=== PATIENT | female | born 1945 | race Caucasian/White ===

== ENCOUNTER 2022-02-14 14:25 | Inpatient (IN) | payer MEDICARE ==
[~2022-02-14] VITALS: Ht 165.1 cm; Wt 71.7 kg
[~2022-02-14 14:25] MED LIST: QUETIAPINE FUMARATE 25 MG TABLET PO SCH
--- NOTE | 2022-02-14 14:25 | NUR ---
PT AL FROM [facility] C/O COUGH AND CONGESTION X2 DAYS. +COVID FEBRUARY 12, 2022. PT IS AAOX2, NOT IN RESPIRATORY DISTRESS, HOOKED TO V/S MONITOR, KEPT RESTED AND COMFORTABLE, WILL CONTINUE TO MONITOR.
[2022-02-14] MEDS ORDERED: APIX5TAB PO (15:29)
[2022-02-14] MEDS ORDERED: QUET100T PO (15:29)
[2022-02-14] MEDS ORDERED: QUET50TA PO (15:29)
[2022-02-14] MEDS ORDERED: ASCO500C17 PO (15:29)
[2022-02-14] MEDS ORDERED: LORA-259 PO (15:29)
[2022-02-14] MEDS ORDERED: VITA1TAB20 PO (15:29)
[2022-02-14] MEDS ORDERED: DIVA-78 PO (15:29)
[2022-02-14] MEDS ORDERED: ASPI-1169 PO (15:29)
[2022-02-14] MEDS ORDERED: MULT-439 PO (15:29)
--- NOTE | 2022-02-14 15:45 | NUR ---
COVID SWABS DONE AND SENT TO LAB
--- NOTE | 2022-02-14 15:50 | NUR ---
SALINE LOCK ESTABLISHED, BLOOD DRAWN AND SENT TO LAB
[2022-02-14 15:57] LABS: BASOPHILS % (AUTO) 0.4 % (0.0-2.0); EOSINOPHILS % (AUTO) 2.4 % (0.0-6.0); HEMATOCRIT 33 % (33-45); HEMOGLOBIN 10.7 g/dL (11.5-14.8); LYMPHOCYTES # (AUTO) 0.9 K/uL (0.8-4.8); LYMPHOCYTES % (AUTO) 15.5 % (20.0-44.0); MEAN CORPUSCULAR HGB CONC 33 g/dl (31.0-36.0); MEAN CORPUSCULAR VOLUME 88 fL (82-100); MONOCYTES # (AUTO) 0.5 K/uL (0.1-1.30); MONOCYTES % (AUTO) 8.2 % (2.0-12.0); NEUTROPHILS # (AUTO) 4.3 K/uL (1.8-8.9); NEUTROPHILS % (AUTO) 73.5 % (43.0-81.0); PLATELET COUNT (AUTO) 321 K/uL (150-450); RED BLOOD CELL COUNT(AUTO) 3.68 MIL/uL (4.0-5.2); WHITE BLOOD COUNT (AUTO) 5.9 K/uL (4.3-11.0)
[2022-02-14 16:26] LABS: ALBUMIN 2.8 g/dL (3.4-5.0); BILIRUBIN,TOTAL 0.6 mg/dL (0.2-1.0); CALCIUM, SERUM 9.8 mg/dL (8.5-10.1); CREATININE 0.7 mg/dL (0.6-1.3); POTASSIUM 4.2 mmol/L (3.5-5.1)
[2022-02-14] MEDS ORDERED: ONDANSETRON HCL/PF 4 MG/2 ML VIAL IVP PRN (17:00)
[2022-02-14] MEDS ORDERED: ALBUTEROL SULFATE 8 GM HFA.AER.AD IH PRN (17:00)
[2022-02-14] MEDS ORDERED: ACETAMINOPHEN 325 MG TABLET PO PRN (17:00)
--- NOTE | 2022-02-14 17:02 | NUR ---
ROOM GIVEN 106.
--- NOTE | 2022-02-14 17:54 | NUR ---
REPORT GIVEN TO ULISES CAIN FOR KELSEY
--- NOTE | 2022-02-14 18:33 | NUR ---
TRANSFERRED TO BED 106 IN STABLE CONDITION
--- NOTE | 2022-02-14 19:10 | NUR ---
RN NOTES RECEIVED REPORT FROM MORNING RN NORIS. PATIENT IN BED CONFUSED COMBATIVE TOWARDS STAFF. WITH IV ACCESS AT R HAND # 20 PATENT FLUSHES WELL. WITH BILATERAL SOFT RESTRAINTS IN PLACE. PATIENT ON ISOLATION DUE TO COVID +. VITAL SIGNS TAKEN AND RECORDED AFEBRILE. ALL SAFETY MEASURES IN PLACE AT ALL TIMES. HOB ELEVATED. CALL LIGHT WITHIN REACH. BED ON LOWEST POSITION AND LOCKED. WILL CLOSELY MONITOR THE PATIENT
[2022-02-14] MEDS: QUETIAPINE FUMARATE 100 MG TABLET PO SCH (19:16)
[2022-02-14] MEDS: APIXABAN 5 MG TABLET PO SCH (19:16)
[2022-02-14 20:00] VITALS: BP 101/85
[2022-02-14] MEDS: DIVALPROEX SODIUM 250 MG TABLET.DR PO SCH (21:06)
[2022-02-14] MEDS: LORAZEPAM INJ 2 MG/ML VIAL IV PRN (22:29)
--- NOTE | 2022-02-15 | NUR ---
RN NOTES PATIENT STILL RESTLESS ABLE TO REMOVE RESTRAINTS. FREQUENT VISUAL MONITORING RENDERED.
[2022-02-15 04:00] VITALS: BP 127/67
[2022-02-15] MEDS: DIVALPROEX SODIUM 250 MG TABLET.DR PO SCH ×3 (05:00→20:22)
[2022-02-15] MEDS ORDERED: CEFTRIAXONE 1 G VIAL ONE ×2 (05:21→05:22)
--- NOTE | 2022-02-15 06:44 | NUR ---
RN NOTES PATIENT REMAINS STABLE NO SIGNIFICANT CHANGES STILL WITH BILATERAL SOFT RESTRAINTS IN PLACE. ALL SAFETY MEASURES IN PLACE AT ALL TIMES. HOB ELEVATED. CALL LIGHT WITHIN REACH. SIDE RAILS UP FOR SAFETY. FREQUENT VISUAL MONITORING RENDERED. PATIENT STILL WITH EPISODE OF RESTLESSNESS TRYING TO GET OUT OF BED EVEN WITH RESTRAINTS
[2022-02-15 07:26] LABS: BASOPHILS % (AUTO) 0.4 % (0.0-2.0); HEMATOCRIT 32 % (33-45); HEMOGLOBIN 10.2 g/dL (11.5-14.8); LYMPHOCYTES # (AUTO) 0.8 K/uL (0.8-4.8); LYMPHOCYTES % (AUTO) 14.1 % (20.0-44.0); MEAN CORPUSCULAR HGB CONC 32 g/dl (31.0-36.0); MEAN CORPUSCULAR VOLUME 89 fL (82-100); MONOCYTES # (AUTO) 0.6 K/uL (0.1-1.30); MONOCYTES % (AUTO) 10.7 % (2.0-12.0); NEUTROPHILS # (AUTO) 3.9 K/uL (1.8-8.9); NEUTROPHILS % (AUTO) 71.8 % (43.0-81.0); PLATELET COUNT (AUTO) 263 K/uL (150-450); RED BLOOD CELL COUNT(AUTO) 3.56 MIL/uL (4.0-5.2); WHITE BLOOD COUNT (AUTO) 5.4 K/uL (4.3-11.0)
--- NOTE | 2022-02-15 07:30 | NUR ---
MS RN OPENING NOTES RECEIVED PATIENT ON BED RESTING AND A/O X1 AND CONFUSED. ON ROOM AIR TOLERATING WELL. NO SOB NOTED. NOT IN DISTRESS. ON AIRBORNE AND CONTACT PRECAUTION. WITH NO COMPLAINTS OF PAIN OR DISCOMFORT AT THIS TIME. WITH IV ACCESS AT RIGHT AC G22 SALINE LOCKED, PATENT AND INTACT. SAFETY MEASURES IN PLACED. CALL LIGHT WITHIN REACH. BED ON LOWEST LOCKED POSITION. SIDE RAILS UP X2. WILL CONTINUE TO MONITOR.
[2022-02-15 08:07] LABS: ALANINE AMINOTRANSFERASE 18 U/L (12-78); ALBUMIN 2.5 g/dL (3.4-5.0); ALKALINE PHOSPHATASE 303 U/L (46-116); ASPARTATE AMINOTRANSFERASE 23 U/L (15-37); BILIRUBIN,TOTAL 0.5 mg/dL (0.2-1.0); CALCIUM, SERUM 9.8 mg/dL (8.5-10.1); CARBON DIOXIDE 27 mmol/L (21-32); CHLORIDE 108 mmol/L (98-107); CREATININE 0.6 mg/dL (0.6-1.3); GLUCOSE 89 mg/dL (74-106); POTASSIUM 3.7 mmol/L (3.5-5.1); SODIUM SERUM 141 mmol/L (136-145); TOTAL PROTEIN, SERUM 6.3 g/dL (6.4-8.2); UREA NITROGEN, BLOOD 18 mg/dL (7-18)
[2022-02-15] MEDS: APIXABAN 5 MG TABLET PO SCH ×2 (08:56→16:20)
[2022-02-15] MEDS: CHOLECALCIFEROL (VITAMIN D 3) 400 UNIT TABLET PO SCH (08:56)
[2022-02-15] MEDS: ASPIRIN 81 MG TAB.CHEW PO SCH (08:56)
[2022-02-15] MEDS: ASCORBIC ACID 500 MG TABLET PO SCH (08:56)
[2022-02-15] MEDS: MULTIVITAMINS,THERAGRAN 1 UDTAB TABLET PO SCH (08:56)
[2022-02-15] MEDS: PYRIDOXINE HCL 50 MG TABLET PO SCH (08:56)
[2022-02-15] MEDS: ZINC SULFATE 220 MG CAPSULE PO SCH (08:56)
[2022-02-15] MEDS: QUETIAPINE FUMARATE 100 MG TABLET PO SCH ×2 (08:56→16:19)
[2022-02-15 12:00] VITALS: BP 132/65
[2022-02-15] MEDS: QUETIAPINE FUMARATE 25 MG TABLET PO SCH (12:09)
--- NOTE | 2022-02-15 18:25 | NUR ---
MS RN CLOSING NOTES PATIENT ON BED RESTING AND A/O X1 AND CONFUSED. ON ROOM AIR TOLERATING WELL. NO SOB NOTED. NOT IN DISTRESS. ON AIRBORNE AND CONTACT PRECAUTION. WITH NO COMPLAINTS OF PAIN OR DISCOMFORT AT THIS TIME. WITH IV ACCESS AT RIGHT AC G22 SALINE LOCKED, PATENT AND INTACT. DUE MEDS GIVEN. SAFETY MEASURES IN PLACED. CALL LIGHT WITHIN REACH. BED ON LOWEST LOCKED POSITION. SIDE RAILS UP X2. WILL ENDORSE TO NEXT SHIFT FOR KELSEY.
--- NOTE | 2022-02-15 19:33 | NUR ---
RN OPENING NOTES RECEIVED PT IN BED, AWAKE, SITTING UPRIGHT. ON RA AND TOLERATING WELL. NO SOB NOTED. NO S/SX OF RESPIRATORY DISTRESS NOTED. AOx1, CONFUSED. IV ACCESS IN RAC #22G. IV IS INTACT, PATENT, AND FLUSHING WELL. SAFETY PRECAUTIONS IN PLACE: BED IN LOWEST, LOCKED POSITION, SIDERAILS UPx2, AND BRAKES ON. TABLE AND CALL LIGHT WITHIN REACH. WILL CONTINUE TO MONITOR.
[2022-02-15 20:00] VITALS: BP 107/70
[2022-02-15] MEDS: LORAZEPAM INJ 2 MG/ML VIAL IV PRN (23:15)
--- NOTE | 2022-02-15 23:15 | NUR ---
ADMINISTERED ATIVAN FOR AGITATION PER MD ORDER. VS WNL. WILL CONTINUE TO MONITOR.
[2022-02-16 04:00] VITALS: BP 121/68
[2022-02-16] MEDS: DIVALPROEX SODIUM 250 MG TABLET.DR PO SCH ×3 (05:17→20:43)
--- NOTE | 2022-02-16 06:49 | NUR ---
RN CLOSING NOTES PT IN BED, ASLEEP, AWAKENS TO VERBAL STIMULI. ON RA AND TOLERATING WELL. NO SOB NOTED. NO S/SX OF RESPIRATORY DISTRESS NOTED. AOx1, CONFUSED. IV ACCESS IN RAC #22G. IV IS INTACT, PATENT, AND FLUSHING WELL. ALL ORDERS CARRIED OUT. ALL NEEDS MET. PT KEPT CLEAN AND DRY. SITTER AT BEDSIDE. SAFETY PRECAUTIONS IN PLACE: BED IN LOWEST, LOCKED POSITION, SIDERAILS UPx2, AND BRAKES ON. TABLE AND CALL LIGHT WITHIN REACH. WILL ENDORSE TO ONCOMING SHIFT FOR KELSEY.
[2022-02-16] MEDS: QUETIAPINE FUMARATE 100 MG TABLET PO SCH ×2 (09:15→16:32)
[2022-02-16] MEDS: ASPIRIN 81 MG TAB.CHEW PO SCH (09:15)
[2022-02-16] MEDS: MULTIVITAMINS,THERAGRAN 1 UDTAB TABLET PO SCH (09:21)
[2022-02-16] MEDS: PYRIDOXINE HCL 50 MG TABLET PO SCH (09:21)
[2022-02-16] MEDS: CHOLECALCIFEROL (VITAMIN D 3) 400 UNIT TABLET PO SCH (09:21)
[2022-02-16] MEDS: ASCORBIC ACID 500 MG TABLET PO SCH (09:21)
[2022-02-16] MEDS: APIXABAN 5 MG TABLET PO SCH ×2 (09:21→16:33)
[2022-02-16] MEDS: ZINC SULFATE 220 MG CAPSULE PO SCH (09:21)
[2022-02-16 12:00] VITALS: BP 110/64
[2022-02-16] MEDS: QUETIAPINE FUMARATE 25 MG TABLET PO SCH (13:09)
[2022-02-16] MEDS ORDERED: LORAZEPAM 0.5 MG TABLET PO PRN (14:30)
--- NOTE | 2022-02-16 18:42 | NUR ---
RN NOTE PT RESTING IN BED, RESPONSIVE TO STIMULI. NOT IN DISTRESS. WITH 1:1 SITTER. ROLANDO SOFT RESTRAINTS IN PLACE, WITH NO SS OF CIRCULATION COMPLICATIONS. IV ACCESS ON RAC G22 IN PLACE AND PATENT FLUSHING WELL. DUE MEDS GIVEN. MORNING AND PM CARE DONE. NEEDS ATTENDED. ALL SAFETY MEASURES FOLLOWED.
[2022-02-16 20:00] VITALS: BP 131/66
--- NOTE | 2022-02-16 20:30 | NUR ---
RN Opening Note Pt received in bed awake, confused; unable to answer when asked for her name, ; appears to be lethargic, but responds to name, touch and sternal rub. Pt noted to be on RA with no s/s of resp distress, non-labored breathing, and no SOB. VSS. Pt on bilateral soft wrist restraints and bilateral soft mittens; no s/s of impaired circulation or impaired skin. RAC 20G intact and patent; no s/s of infiltration. Bed in lowest position, call light within reach, side rails up x3. Will continue to monitor throughout the night.
--- NOTE | 2022-02-16 21:23 | NUR ---
RN Note Unable to administer scheduled Divalproex med at 2100; pt appears lethargic, unable to follow commands, unable to swallow medication. Will continue to monitor throughout the night.
--- NOTE | 2022-02-17 00:15 | NUR ---
RN Note Pt attempting to get out of bed, putting legs out of side rails, biting at mittens, and is restless. Pt given Ativan 0.5 mg PO PRN crushed and mixed with applesauce. Will monitor for effectiveness.
[2022-02-17 04:00] VITALS: BP 118/53
[2022-02-17] MEDS: DIVALPROEX SODIUM 250 MG TABLET.DR PO SCH ×2 (05:56→12:37)
--- NOTE | 2022-02-17 06:01 | NUR ---
RN Closing Note Pt sitting in bed, more awake than start of shift, confused. On RA, with O2sat 95%; no s/s of resp distress, no SOB noted, non-labored breathing. VSS. Pt showed no improvement after administering ativan 0.5 mg at 0046. Pt continues to be restless, biting at mittens, getting legs out of bed. RAC 22G intact and patent; no s/s of infiltration, flushes well without resistance. Cleansed pt and changed linens and gown. Bed in lowest position, call light within reach, side rails up x3. Will endorse to dayshift nurse to continue care.
--- NOTE | 2022-02-17 07:30 | NUR ---
RN AM NOTES PT IN BED, AWAKE/LETHARGIC, RESPONDS TO NAME AND TOUCH, CALM, CONFUSED, UNABLE TO FOLLOW COMMANDS, ON ROOM AIR, O2 SAT 95%. NO DISTRESS, RESPIRATION UNLABORED, NO SIGNS OF PAIN, IV ACCESS ON RT AC 22 G, FLUSHES WELL, SITE CLEAR. WITH BILAT SOFT WRIST RESTRAINT AND BILAT SOFT MITTENS. RELEASED AND CHECKED FOR CIRCULATION THEN Q 2 HOURS. REALITY ORIENTATION DONE. CALL LIGHT WITHIN REACH, SAFETY MEASURES IN PLACE, SR UP X 3, BED LOW LOCKED, WILL CONT TO MONITOR
[2022-02-17 08:00] VITALS: BP 98/73
[2022-02-17] MEDS ORDERED: Zinc Sulfate PO (08:22)
--- NOTE | 2022-02-17 09:30 | NUR ---
RN NOTES DUE MEDS GIVEN
[2022-02-17] MEDS: QUETIAPINE FUMARATE 100 MG TABLET PO SCH (09:57)
[2022-02-17] MEDS: MULTIVITAMINS,THERAGRAN 1 UDTAB TABLET PO SCH (09:57)
[2022-02-17] MEDS: ZINC SULFATE 220 MG CAPSULE PO SCH (09:57)
[2022-02-17] MEDS: ASCORBIC ACID 500 MG TABLET PO SCH (09:57)
[2022-02-17] MEDS: CHOLECALCIFEROL (VITAMIN D 3) 400 UNIT TABLET PO SCH (09:57)
[2022-02-17] MEDS: ASPIRIN 81 MG TAB.CHEW PO SCH (09:57)
[2022-02-17] MEDS: PYRIDOXINE HCL 50 MG TABLET PO SCH (09:57)
[2022-02-17] MEDS: APIXABAN 5 MG TABLET PO SCH (09:59)
[2022-02-17 12:00] VITALS: BP 104/61
[2022-02-17] MEDS: QUETIAPINE FUMARATE 25 MG TABLET PO SCH (12:37)
--- NOTE | 2022-02-17 13:40 | NUR ---
RN NOTES DUE MEDS GIVEN
--- NOTE | 2022-02-17 14:30 | NUR ---
RN NOTES PATIENT DISCHARGED BACK TO [facility] IN STABLE CONDITION PER MD. PROVIDED DC INSTRUCTIONS, HEALTH TEACHINGS AND MED RECON LIST. PT TO FOLLOW UP WITH PCP IN 1 WEEK PER FACILITY PROTOCOL. IV ACCESS TO RT AC REMOVED, APPLIED PRESSURE AND DRESSING. NO BLEEDING.CATH TIP COMPLETE. ALL BELONGINGS CHECKED AND RETURNED. ALL PAPERWORKS SIGNED. REPORT GIVEN TO SANDRA AT FACILITY EARLIER. BP 104/61 O2 SAT 94% PATIENT TO BE TRANSPORTED VIA AMBULANCE WITH 2 AMBULANCE CREW.
== END 2022-02-17 15:00 | DRG 178 ==
LOC: ER 14:27 → TRANSITION 16:47 → MEDSG1 17:44
PROVIDERS: ADMIT Nurse Practitioner Acute Care; ATTEND Nurse Practitioner Acute Care
DX: U07.1 COVID-19 (principal); J98.11 Atelectasis; F01.51 Vascular dementia, unspecified severity, with behavioral disturbance; I10 Essential (primary) hypertension; R74.8 Abnormal levels of other serum enzymes; F25.9 Schizoaffective disorder, unspecified; F29 Unspecified psychosis not due to a substance or known physiological condition
CPT/HCPCS: 36415; 71045-TC; 80053-TC; 80164-TC; 85025-TC; 87081-TC; C9803; G0378; J0696; J2060; U0003

== ENCOUNTER 2022-05-19 22:39 | Inpatient (IN) | payer MEDICARE ==
[~2022-05-19] VITALS: Ht 182.9 cm; Wt 102.1 kg
[~2022-05-19 22:39] MED LIST changes: +APIX5TAB PO; +ASCO500C17 PO; +ASPI-1169 PO; +DIVA-78 PO; +LORA-259 PO; +MULT-439 PO; +QUET100T PO; +QUET50TA PO; -QUETIAPINE FUMARATE 25 MG TABLET PO SCH; +VITA1TAB20 PO
--- NOTE | 2022-05-19 23:00 | NUR ---
PATIENT BIBPA FROM [facility] C/O MED CLEARANCE. PATIENT IS A/O X 1, RR EVEN AND UNLABORED, NO SOB NOTED. PATIENT TAKEN TO ER BED 7, CONNECTED TO MONITORS.
--- NOTE | 2022-05-19 23:01 | NUR ---
AT BED SIDE
--- NOTE | 2022-05-19 23:01 | NUR ---
PT PLACED ON HOLD 05/19/22 @2127 BY LINDA GEIGER FOR GDR/DTO
[2022-05-19] MEDS ORDERED: OLANZAPINE 10 MG VIAL IM ONE ×2 (23:07→23:30)
[2022-05-19] MEDS ORDERED: APIXABAN 5 MG TABLET ONE (23:07)
--- NOTE | 2022-05-19 23:10 | NUR ---
COVID ANTIGEN SWAB COLLECTED AND SENT TO LAB
[2022-05-19] MEDS: APIXABAN 5 MG TABLET PO SCH (23:23)
--- NOTE | 2022-05-19 23:24 | NUR ---
URINE COLLECTED AND SENT TO LAB
--- NOTE | 2022-05-19 23:25 | NUR ---
EMT AT PT'S BEDSIDE FOR MRSA SWAB & PT BELONGINGS LIST
[2022-05-19 23:33] LABS: BASOPHILS % (AUTO) 0.7 % (0.0-2.0); EOSINOPHILS % (AUTO) 3.8 % (0.0-6.0); HEMATOCRIT 35 % (33-45); HEMOGLOBIN 11.3 g/dL (11.5-14.8); LYMPHOCYTES % (AUTO) 28.3 % (20.0-44.0); MEAN CORPUSCULAR HGB CONC 32 g/dl (31.0-36.0); MEAN CORPUSCULAR VOLUME 85 fL (82-100); MONOCYTES # (AUTO) 0.8 K/uL (0.1-1.30); MONOCYTES % (AUTO) 11.6 % (2.0-12.0); NEUTROPHILS # (AUTO) 3.9 K/uL (1.8-8.9); NEUTROPHILS % (AUTO) 55.6 % (43.0-81.0); PLATELET COUNT (AUTO) 269 K/uL (150-450); RED BLOOD CELL COUNT(AUTO) 4.12 MIL/uL (4.0-5.2); WHITE BLOOD COUNT (AUTO) 7.1 K/uL (4.3-11.0)
[2022-05-19 23:58] LABS: ALANINE AMINOTRANSFERASE 15 U/L (12-78); ALBUMIN 2.8 g/dL (3.4-5.0); ALCOHOL, BLOOD < 3 mg/dL (0-0); ALKALINE PHOSPHATASE 128 U/L (46-116); ASPARTATE AMINOTRANSFERASE 15 U/L (15-37); BILIRUBIN,DIRECT 0.1 mg/dL (0.0-0.2); BILIRUBIN,TOTAL 0.3 mg/dL (0.2-1.0); CARBON DIOXIDE 29 mmol/L (21-32); CHLORIDE 105 mmol/L (98-107); CREATININE 0.7 mg/dL (0.6-1.3); GLUCOSE 96 mg/dL (74-106); POTASSIUM 4.3 mmol/L (3.5-5.1); SODIUM SERUM 139 mmol/L (136-145); TOTAL PROTEIN, SERUM 7.3 g/dL (6.4-8.2); UREA NITROGEN, BLOOD 8 mg/dL (7-18)
[2022-05-20 00:02] LABS: BILIRUBIN,URINE NEGATIVE (NEGATIVE); COLOR,URINE YELLOW (YELLOW); LEUKOCYTE ESTERASE ,URINE LARGE (NEGATIVE); NITRITE, URINE POSITIVE (NEGATIVE); PH,URINE 6.5 (5.0-8.0); PROTEIN,URINE NEGATIVE (NEGATIVE); UGLUCOSE NEGATIVE (NEGATIVE); UROBILINOGEN,URINE 0.2 EU/dL (0.2)
[2022-05-20 00:06] LABS: ACETAMINOPHEN < 2 ug/ml (10-30)
--- NOTE | 2022-05-20 01:25 | NUR ---
REPORT GIVEN TO [facility] RN FOR KELSEY
--- NOTE | 2022-05-20 01:29 | NUR ---
LEFT VOICE MAIL TO KARLEY BARRY ([facility] CONTACT #1) REGARDING PT'S ADMISSION TO [facility]
--- NOTE | 2022-05-20 02:47 | NUR ---
PT TRANSFERRED TO [facility] VIA PROTOCOL. ALL BELONGINGS WITH PT. VSS.
[2022-05-20] MEDS ORDERED: MAG HYDROX/AL HYDROX/SIMETH 30 ML UDC PO PRN (03:30)
[2022-05-20] MEDS ORDERED: BLOOD SUGAR DIAGNOSTIC 1 EACH STRIP IN ONE (03:30)
[2022-05-20] MEDS ORDERED: MAGNESIUM HYDROXIDE 30 ML UDC PO PRN (03:30)
[2022-05-20] MEDS ORDERED: ACETAMINOPHEN 325 MG TABLET PO PRN ×2 (03:30→13:00)
[2022-05-20] MEDS ORDERED: CHOL400C8 PO (05:01)
[2022-05-20 05:02] LABS: BACTERIA,URINE Many /HPF (None Seen); CALCIUM OXALATE CRYSTALS,UR Few /HPF (None Seen); SQUAMOUS EPITHELIAL CELL,UR Few /HPF (None Seen); WBC,URINE TOO NUMEROUS TO COUN /HPF (0-3)
--- NOTE | 2022-05-20 05:13 | NUR ---
GPS RN ADMITTING NOTES: PATIENT ARRIVED THIS UNIT WITH AN ER ESCORT ON A GURNEY AT 0245. PATIENT IS ORIGINALLY FROM [facility]. PATIENT IS ON A 5150 HOLD FOR DTO/GD. HOLD WAS PLACED ON 05/20/22 @ 2129. PER HOLD PATIENT WAS ACTING BIZARRE, CONFUSED, UNABLE TO RESPOND APPROPRIATELY TO QUESTIONS, STRIPPING HERSELF NAKED, FLIPPING HER CHAIR, ATTACKING STAFF AND REFUSING TO BE CLEANED. UPON FACE TO FACE EVALUATION, PATIENT IS A/O X1, FLAT AFFECT, CONFUSED, LABILE, DISORGANIZED, AGITATED AND COMBATIVE WHEN CARE IS BEING PROVIDED. PATIENT IS UNABLE TO SIGN ALL ADMISSION PAPERWORK, BS95. PARTIAL SKIN ASSESSMENT DONE BECAUSE PATIENT IS COMBATIVE, PICTURES TAKEN AND PLACED IN PATIENT CHART. PATIENT REFUSED V/S, MRSA. WOUND CARE, PT EVAL AND CONCRETE BUCKET HOOKER CONSULT INITIATED. PATIENT ADVISED OF HER HOLD AND PATIENT RIGHTS BOOKLET AND PRESCRIPTION MEDICATION GUIDE GIVEN. PATIENT BELONGINGS WERE INVENTORIED FOR [employer]. PT IS UNDER THE PSYCHIATRIC CARE OF DR. KLINE AND MEDICAL CARE OF DR. SUTTON. PATIENT BED IS IN LOW LOCKED POSITION, SIDE RAILS UP X2 FOR SAFETY. PATIENT OFFERED FLUID AND SNACKS TOLERATED. WILL CONTINUE TO MONITOR Q15 MINS FOR MOOD, SAFETY AND BEHAVIOR.
--- NOTE | 2022-05-20 07:06 | NUR ---
[facility]PS RN NOTES: PATIENT DAUGHTER JANUARY ASHA [phone] NOTIFIED OF PATIENT ADMISSION TO [facility] AT 0655.
[2022-05-20 08:00] VITALS: BP 102/62
[2022-05-20] MEDS ORDERED: ACET-868 PO (08:03)
[2022-05-20] MEDS ORDERED: MAGN400O6 PO (08:03)
[2022-05-20] MEDS ORDERED: DOCU-141 PO (08:03)
--- NOTE | 2022-05-20 09:00 | NUR ---
RN NOTE- PSYCHOSIS, DISORGANIZED MUMBLING PO INTAKE GOOD W ASSIST, MED COMPLIANT
[2022-05-20] MEDS: APIXABAN 5 MG TABLET PO SCH ×2 (09:20→16:58)
[2022-05-20] MEDS: Z GUARD REMEDY 4 OZ OINT TP SCH (09:22)
--- NOTE | 2022-05-20 11:08 | NUR ---
Treatment Plan: Pt refused to sign treatment plan due to pt being very confused and disorganized.
--- NOTE | 2022-05-20 11:08 | NUR ---
CAR Clinical Note: Pt placed on a 5150 hold for danger to others and GD. Per hold, pt was at [facility] and was aggressive at the facility towards staff and was not taking any of her medications. Patient currently resides at [facility] [address] [place] [address]; ([phone]). CAR spoke with Kit alonso who stated that pt is welcomed back upon discharge.
--- NOTE | 2022-05-20 11:08 | NUR ---
CAR Initial Discharge Note: Patient currently resides at [facility] [address] [place] [address]; ([phone]). CAR spoke with Kit alonso who stated that pt is welcomed back upon discharge. CAR will work with the MD, family, and treatment team to help coordinate appropriate discharge.
--- NOTE | 2022-05-20 12:59 | NUR ---
CAR Family Contact: SW contacted pt's son Germain ([phone]) and notified of admission. SW left a detailed voicemail in regards to placement and stated when pt is stabilized she will return back to [facility].
[2022-05-20] MEDS: DIVALPROEX SODIUM 125 MG CAP.SPRINK PO SCH ×2 (13:12→16:55)
[2022-05-20] MEDS: ASPIRIN 81 MG TAB.CHEW PO SCH (13:12)
[2022-05-20] MEDS: MULTIVIT W/MINERALS 1 TAB TABLET PO SCH (13:12)
[2022-05-20] MEDS: QUETIAPINE FUMARATE 25 MG TABLET PO SCH ×3 (13:12→21:38)
[2022-05-20] MEDS: VITAMIN B COMP W-C 1 TAB TABLET PO SCH (13:12)
[2022-05-20] MEDS: CHOLECALCIFEROL (VITAMIN D 3) 400 UNIT TABLET PO SCH (13:12)
[2022-05-20 16:00] VITALS: BP 127/60
[2022-05-20] MEDS ORDERED: APIXABAN 5 MG TABLET PO SCH (17:00)
[2022-05-20 20:30] VITALS: BP 134/72
--- NOTE | 2022-05-20 20:34 | NUR ---
GPS RN OPENING NOTES: RECEIVED PATIENT IN DAY ROOM SITTING IN AKASH CHAIR, AWAKE, A/O X1. APPEARS DEPRESSED, FLAT AFFECT, ANXIOUS, RESTLESS, DISORGANIZED, DISORIENTED, CONFUSED. UNABLE TO GIVE APPROPRIATE ANSWERS TO QUESTIONS. NO S/S OF DISTRESS. RESPIRATION EVEN AND UNLABORED WITH EQUAL RISE AND FALL OF THE CHEST, ON ROOM AIR. OFFERED FLUID AND SNACKS TOLERATED. WILL CONTINUE TO MONITOR Q15 FOR MOOD, SAFETY AND BEHAVIOR.
[2022-05-20] MEDS: ZOLPIDEM TARTRATE 5 MG TABLET PO PRN (22:18)
--- NOTE | 2022-05-20 22:20 | NUR ---
GPS RN NOTES: AMBIEN 5MG GIVEN PO AT 2218 D/T INSOMNIA. WILL CONTINUE TO MONITOR.
[2022-05-21] MEDS: LORAZEPAM 0.5 MG TABLET PO PRN ×2 (03:12→20:11)
--- NOTE | 2022-05-21 03:15 | NUR ---
GPS RN NOTES: Patient is restless, agitated, refusing redirection. Ativan 1mg given po at 0312.
[2022-05-21 08:00] VITALS: BP 112/68
[2022-05-21 08:03] LABS: CHOLESTEROL 162 mg/dL (<200); HDL CHOLESTEROL 54 mg/dL (40-60); LDL 89 mg/dL (0-99); TRIGLYCERIDES 119 mg/dL (30-150)
[2022-05-21 08:06] LABS: ALANINE AMINOTRANSFERASE 29 U/L (12-78); ALKALINE PHOSPHATASE 139 U/L (46-116); ASPARTATE AMINOTRANSFERASE 50 U/L (15-37); BILIRUBIN,TOTAL 0.5 mg/dL (0.2-1.0); CARBON DIOXIDE 31 mmol/L (21-32); CHLORIDE 105 mmol/L (98-107); CREATININE 0.8 mg/dL (0.6-1.3); GLUCOSE 111 mg/dL (74-106); POTASSIUM 3.6 mmol/L (3.5-5.1); SODIUM SERUM 139 mmol/L (136-145); TOTAL PROTEIN, SERUM 7.7 g/dL (6.4-8.2); UREA NITROGEN, BLOOD 7 mg/dL (7-18)
[2022-05-21 08:27] LABS: CREATININE 0.7 mg/dL (0.6-1.3)
[2022-05-21] MEDS: VITAMIN B COMP W-C 1 TAB TABLET PO SCH (09:26)
[2022-05-21] MEDS: MULTIVIT W/MINERALS 1 TAB TABLET PO SCH (09:26)
[2022-05-21] MEDS: CHOLECALCIFEROL (VITAMIN D 3) 400 UNIT TABLET PO SCH (09:26)
[2022-05-21] MEDS: QUETIAPINE FUMARATE 25 MG TABLET PO SCH ×4 (09:26→20:28)
[2022-05-21] MEDS: DIVALPROEX SODIUM 125 MG CAP.SPRINK PO SCH ×3 (09:26→17:02)
[2022-05-21] MEDS: DOCUSATE SODIUM 100 MG CAPSULE PO SCH (09:28)
[2022-05-21] MEDS: ASPIRIN 81 MG TAB.CHEW PO SCH (09:28)
[2022-05-21] MEDS: APIXABAN 5 MG TABLET PO SCH ×2 (09:28→17:03)
[2022-05-21] MEDS: Z GUARD REMEDY 4 OZ OINT TP SCH (09:33)
--- NOTE | 2022-05-21 11:07 | NUR ---
Individual Therapy: SW attempted to conduct brief therapy. Pt is confused and disorganized. Pt unable to have a proper conversation due to her dementia.
--- NOTE | 2022-05-21 11:11 | NUR ---
Knife Setter Grinder Machine: SW received a call from comp field case manager Susie ([phone]) and discussed patient's status and how she has been doing. She stated that she will transfer this message to pt's son Germain, per his request.
[2022-05-21 16:00] VITALS: BP 127/79
[2022-05-21] MEDS ORDERED: CEPHALEXIN MONOHYDRATE 500 MG CAPSULE PO SCH (18:00)
[2022-05-21 20:00] VITALS: BP 124/71
--- NOTE | 2022-05-21 20:12 | NUR ---
GPS RN NOTES: PATIENT IS ANXIOUS, RESTLESS, AGITATED, CONFUSED. ATIVAN 1MG GIVEN PO AT 2010. WILL CONTINUE TO MONITOR.
--- NOTE | 2022-05-21 20:20 | NUR ---
GPS RN OPENING NOTES: RECEIVED PATIENT IN HALLWAY SITTING IN AKASH CHAIR, AWAKE, A/O X1. APPEARS DEPRESSED, FLAT AFFECT, ANXIOUS, RESTLESS, DISORGANIZED, DISORIENTED, CONFUSED, UNABLE TO FOLLOW REDIRECTION. UNABLE TO GIVE APPROPRIATE ANSWERS TO QUESTIONS. ATIVAN 1MG GIVEN PO AT 2010. NO S/S OF DISTRESS. RESPIRATION EVEN AND UNLABORED WITH EQUAL RISE AND FALL OF THE CHEST, ON ROOM AIR. OFFERED FLUID AND SNACKS TOLERATED. WILL CONTINUE TO MONITOR Q15 FOR MOOD, SAFETY AND BEHAVIOR.
[2022-05-21] MEDS: CIPROFLOXACIN HCL 500 MG TABLET PO SCH (20:28)
[2022-05-21] MEDS: ZOLPIDEM TARTRATE 5 MG TABLET PO PRN (21:36)
[2022-05-22 08:00] VITALS: BP 132/76
[2022-05-22] MEDS: ASPIRIN 81 MG TAB.CHEW PO SCH (09:13)
[2022-05-22] MEDS: CIPROFLOXACIN HCL 500 MG TABLET PO SCH ×2 (09:13→21:27)
[2022-05-22] MEDS: VITAMIN B COMP W-C 1 TAB TABLET PO SCH (09:13)
[2022-05-22] MEDS: MULTIVIT W/MINERALS 1 TAB TABLET PO SCH (09:13)
[2022-05-22] MEDS: DOCUSATE SODIUM 100 MG CAPSULE PO SCH (09:13)
[2022-05-22] MEDS: CHOLECALCIFEROL (VITAMIN D 3) 400 UNIT TABLET PO SCH (09:13)
[2022-05-22] MEDS: DIVALPROEX SODIUM 125 MG CAP.SPRINK PO SCH ×3 (09:14→16:32)
[2022-05-22] MEDS: QUETIAPINE FUMARATE 25 MG TABLET PO SCH ×3 (09:14→16:32)
[2022-05-22] MEDS: APIXABAN 5 MG TABLET PO SCH ×2 (09:22→16:32)
[2022-05-22] MEDS: Z GUARD REMEDY 4 OZ OINT TP SCH (09:35)
--- NOTE | 2022-05-22 10:50 | NUR ---
RN Notes: Received pt. asleep in bed, breathing is even and unlabored. Ate 50% for breakfast and due meds given. Morning care given and pt. is cooperative to care. Pt. is confused and disoriented and reoriented to person, place, day, date and situation. No distress and no agitation noted and will continue to monitor for safety.
--- NOTE | 2022-05-22 15:24 | NUR ---
Called the office of the wound nurse and left a message for the wound consult.
[2022-05-22 16:00] VITALS: BP 115/65
--- NOTE | 2022-05-22 19:15 | NUR ---
METAL CONTROL WORKER Noted: Pt rcvd awake in bed, calm. Pt @ RA, breathing even and unlabored , no s/sx of distress noted. Safety sr's up as ordered, bed alarm on.
[2022-05-22] MEDS: QUETIAPINE FUMARATE 100 MG TABLET PO SCH (21:27)
--- NOTE | 2022-05-23 05:19 | NUR ---
SERVICE DESK ANALYST Note: Pt slept mostly through out the night, woke up intermittently for few mins and goes back to sleep, was easy to arouse. No episode of combativeness or agitation noted. All due meds given as ordered and tolerated by pt. L.Leg wound kept clean and dry. AM care provided, pt kept clean and comfortable. Safety measures noted.
--- NOTE | 2022-05-23 07:09 | NUR ---
WOUND CARE CONSULT: PT PRESENTS WITH RASH/REDNESS TO BUTTOCKS, WOUNDS TO RT DORSAL FOOT AND LEFT LOWER LEG, PRESENT ON ADMISSION. DPM CONSULT TO BE CALLED TO DR SHRESTHA THIS AM. RECOMMENDATIONS MADE FOR SKIN PROTECTION. DISCUSSED WITH NURSING STAFF. MD IN AGREEMENT WITH PLAN OF CARE.
[2022-05-23 08:00] VITALS: BP 104/60
[2022-05-23] MEDS: MULTIVIT W/MINERALS 1 TAB TABLET PO SCH (08:25)
[2022-05-23] MEDS: DIVALPROEX SODIUM 125 MG CAP.SPRINK PO SCH ×3 (08:25→16:37)
[2022-05-23] MEDS: DOCUSATE SODIUM 100 MG CAPSULE PO SCH (08:25)
[2022-05-23] MEDS: CHOLECALCIFEROL (VITAMIN D 3) 400 UNIT TABLET PO SCH (08:25)
[2022-05-23] MEDS: VITAMIN B COMP W-C 1 TAB TABLET PO SCH (08:25)
[2022-05-23] MEDS: ASPIRIN 81 MG TAB.CHEW PO SCH (08:25)
[2022-05-23] MEDS: Z GUARD REMEDY 4 OZ OINT TP SCH (08:26)
[2022-05-23] MEDS: QUETIAPINE FUMARATE 25 MG TABLET PO SCH ×2 (08:26→16:37)
[2022-05-23] MEDS: APIXABAN 5 MG TABLET PO SCH ×2 (08:26→16:38)
[2022-05-23] MEDS: CIPROFLOXACIN HCL 500 MG TABLET PO SCH ×2 (08:26→21:22)
[2022-05-23] MEDS: CLOTRIMAZOLE 1% 15 GM TUBE TP SCH ×2 (09:25→16:39)
[2022-05-23 10:48] VITALS: BP 104/60
[2022-05-23 16:00] VITALS: BP 110/63
--- NOTE | 2022-05-23 17:57 | NUR ---
RN-NOTES PATIENT LYING IN BED AWAKE A/O X1, QUIET,GUARDED ,NON INTERACTIVE WITH STAFF. COMPLIANT WITH MEDICATIONS. NOTED PATIENT PEELING THE SCAB ON HER RIGHT LOWER LEG. REEDUCATE AND INSTRUCTED PATIENT NOT TO PEEL OR TOUCH HER WOUNDS. NEEDS MAXIMUM ASSIST WITH ADL'S. GOOD DANIELE CARE RENDERED,ABLE TO MOVE INDEPENDENTLY IN BED. ALL NEEDS ATTENDED AND ANTICIPATED. WILL ENDORSE TO INCOMING SHIFT FOR CONTINUITY OF CARE.
--- NOTE | 2022-05-23 20:00 | NUR ---
RN NOTES:PATIENT RESTING IN BED, AWAKE, ALERT.DEPRESSED, DISORGANIZED,FLAT AFFECT EASILY AGITATED, , GUARDED,ANXIOUS, NO ACUTE DISTRESS NOTED. DENIES SI/HI AT THIS TIME.HIGH FALL RISK. SAFETY MEASURES IN PLACE. WILL CONTINUE TO MONITOR Q 15 MIN FOR SAFETY AND BEHVAIOR.
[2022-05-23] MEDS: QUETIAPINE FUMARATE 100 MG TABLET PO SCH (21:22)
[2022-05-23 22:32] VITALS: BP 144/65
[2022-05-24] MEDS: Z GUARD REMEDY 4 OZ OINT TP PRN (06:14)
[2022-05-24 08:00] VITALS: BP 135/60
[2022-05-24] MEDS: DIVALPROEX SODIUM 125 MG CAP.SPRINK PO SCH ×3 (08:09→16:25)
[2022-05-24] MEDS: VITAMIN B COMP W-C 1 TAB TABLET PO SCH (08:09)
[2022-05-24] MEDS: MULTIVIT W/MINERALS 1 TAB TABLET PO SCH (08:09)
[2022-05-24] MEDS: DOCUSATE SODIUM 100 MG CAPSULE PO SCH (08:09)
[2022-05-24] MEDS: ASPIRIN 81 MG TAB.CHEW PO SCH (08:09)
[2022-05-24] MEDS: QUETIAPINE FUMARATE 25 MG TABLET PO SCH ×2 (08:09→16:25)
[2022-05-24] MEDS: CHOLECALCIFEROL (VITAMIN D 3) 400 UNIT TABLET PO SCH (08:09)
[2022-05-24] MEDS: APIXABAN 5 MG TABLET PO SCH ×2 (08:10→16:26)
[2022-05-24] MEDS: CLOTRIMAZOLE 1% 15 GM TUBE TP SCH ×2 (09:26→16:26)
[2022-05-24] MEDS: Z GUARD REMEDY 4 OZ OINT TP SCH (09:27)
[2022-05-24] MEDS: LORAZEPAM 0.5 MG TABLET PO PRN ×2 (10:31→18:57)
--- NOTE | 2022-05-24 10:35 | NUR ---
RN-NOTES PATIENT IN THE DAY ROOM UP IN THE AKASH CHAIR NOTED WITH AGITATED HITTING THE CHAIR TABLE WITH BOTH HANDS, EPISODE OF CRYING. REDIRECTED AND ATIVAN 0.5MG P.O GIVEN PRN ORDER. WILL CONT. MONITORING FOR SAFETY AND BEHAVIOR.
--- NOTE | 2022-05-24 11:35 | NUR ---
RN-NOTES PATIENT IN THE DAY ROOM UP IN THE AKASH CHAIR MARE,CONFUSED,CALM NO ACUTE DISTRESS.
[2022-05-24 16:00] VITALS: BP 123/88
--- NOTE | 2022-05-24 18:19 | NUR ---
RN-NOTES PATIENT IN THE HALLWAY AWAKE A/O X1, QUIET,GUARDED CONFUSED NEEDS FREQUENT REDIRECTIONS AND INSTRUCTION, COMPLIANT WITH MEDICATIONS. NOTED PATIENT PEELING THE SCAB ON HER BILATERAL LOWER LEG. REEDUCATE AND INSTRUCTED PATIENT NOT TO PEEL OR TOUCH HER WOUNDS. NEEDS MAXIMUM ASSIST WITH ADL'S. GOOD DANIELE CARE RENDERED,ABLE TO MOVE INDEPENDENTLY. ALL NEEDS ATTENDED AND ANTICIPATED. WILL ENDORSE TO INCOMING SHIFT FOR CONTINUITY OF CARE.
--- NOTE | 2022-05-24 18:59 | NUR ---
RN-NOTES PATIENT IN THE HALLWAY UP IN THE AKASH CHAIR, AGITATED DISROBING, UNCOOPERATIVE. ATIVAN 0.5MG P.O GIVEN PRN ORDER. WILL ENDORSE TO INCOMING NURSE TO CONT. MONITORING FOR SAFETY AND BEHAVIOR.
--- NOTE | 2022-05-24 19:14 | NUR ---
RN-NOTES DR. LAL ( GLASS WASHER AND CARRIER) SEEN THE PATIENT AND WILL PUT ORDER FOR THE WOUND.ENDORSE TO NIGHT NURSE FOR FOLLOW UP FOR THE ORDER.
--- NOTE | 2022-05-24 20:57 | NUR ---
RN NOTES: PATIENT RESTING IN HER BED, AWAKE, ALERT.DEPRESSED, DISORGANIZED,FLAT AFFECT EASILY AGITATED, , GUARDED,ANXIOUS, NO ACUTE DISTRESS NOTED. DENIES SI/HI AT THIS TIME.HIGH FALL RISK. SAFETY MEASURES IN PLACE. WILL CONTINUE TO MONITOR Q 15 MIN FOR SAFETY AND BEHVAIOR.
[2022-05-24 21:00] VITALS: BP 120/72
[2022-05-24] MEDS: MUPIROCIN OINT 2% 22 GM TUBE TP SCH ×2 (21:00→23:40)
[2022-05-24] MEDS: QUETIAPINE FUMARATE 100 MG TABLET PO SCH (21:20)
--- NOTE | 2022-05-24 22:06 | NUR ---
RN NOTES: BACTROBAN OINT 2% NOTAVILABLE AT THIS TIME , NOTIFIED NURSING SUERVISIOR, DRUG NOTAVILABLE.
[2022-05-24] MEDS ORDERED: MUPIROCIN OINT 2% 22 GM TUBE ONE (22:57)
--- NOTE | 2022-05-24 23:41 | NUR ---
GPS RN NOTES BACTROBAN OINTMENT WAS BROUGHT BY NURSING JAVA SOFTWARE ENGINEER AT THIS TIME. ADMINISTERED BACTROBAN OINTMENT ORDERED.
[2022-05-25 08:00] VITALS: BP 136/99
[2022-05-25] MEDS: CHOLECALCIFEROL (VITAMIN D 3) 400 UNIT TABLET PO SCH (09:14)
[2022-05-25] MEDS: QUETIAPINE FUMARATE 25 MG TABLET PO SCH ×3 (09:14→17:31)
[2022-05-25] MEDS: VITAMIN B COMP W-C 1 TAB TABLET PO SCH (09:14)
[2022-05-25] MEDS: ASPIRIN 81 MG TAB.CHEW PO SCH (09:14)
[2022-05-25] MEDS: DIVALPROEX SODIUM 125 MG CAP.SPRINK PO SCH ×4 (09:14→17:32)
[2022-05-25] MEDS: DOCUSATE SODIUM 100 MG CAPSULE PO SCH (09:14)
[2022-05-25] MEDS: MULTIVIT W/MINERALS 1 TAB TABLET PO SCH (09:14)
[2022-05-25] MEDS: APIXABAN 5 MG TABLET PO SCH ×3 (09:16→17:33)
[2022-05-25] MEDS: HYDROCORTISONE 2.5% CREAM 28.4 GM TUBE TP SCH ×2 (09:17→17:26)
[2022-05-25] MEDS: MUPIROCIN OINT 2% 22 GM TUBE TP SCH ×2 (09:17→21:41)
[2022-05-25] MEDS: Z GUARD REMEDY 4 OZ OINT TP SCH (09:21)
[2022-05-25] MEDS: CLOTRIMAZOLE 1% 15 GM TUBE TP SCH ×2 (09:24→17:26)
[2022-05-25 16:00] VITALS: BP 111/69
[2022-05-25 20:12] VITALS: BP 100/63
[2022-05-25] MEDS: QUETIAPINE FUMARATE 100 MG TABLET PO SCH (21:41)
[2022-05-26 08:00] VITALS: BP 135/69
[2022-05-26] MEDS: ASPIRIN 81 MG TAB.CHEW PO SCH (09:08)
[2022-05-26] MEDS: DIVALPROEX SODIUM 125 MG CAP.SPRINK PO SCH ×3 (09:08→16:42)
[2022-05-26] MEDS: VITAMIN B COMP W-C 1 TAB TABLET PO SCH (09:08)
[2022-05-26] MEDS: APIXABAN 5 MG TABLET PO SCH ×2 (09:09→16:45)
[2022-05-26] MEDS: QUETIAPINE FUMARATE 25 MG TABLET PO SCH ×2 (09:09→16:42)
[2022-05-26] MEDS: CHOLECALCIFEROL (VITAMIN D 3) 400 UNIT TABLET PO SCH (09:09)
[2022-05-26] MEDS: MULTIVIT W/MINERALS 1 TAB TABLET PO SCH (09:09)
[2022-05-26] MEDS: DOCUSATE SODIUM 100 MG CAPSULE PO SCH (09:10)
[2022-05-26] MEDS: Z GUARD REMEDY 4 OZ OINT TP SCH (09:19)
[2022-05-26] MEDS: HYDROCORTISONE 2.5% CREAM 28.4 GM TUBE TP SCH ×2 (09:33→17:30)
[2022-05-26] MEDS: CLOTRIMAZOLE 1% 15 GM TUBE TP SCH ×2 (09:33→17:30)
[2022-05-26] MEDS: MUPIROCIN OINT 2% 22 GM TUBE TP SCH ×2 (09:33→21:27)
--- NOTE | 2022-05-26 10:33 | NUR ---
Court Hearing: Patient's court hearing for 9620 was today and it was upheld for GD.
--- NOTE | 2022-05-26 10:33 | NUR ---
Court Notification: Germain ([phone]) CAR contacted and left a voicemail for 5250 hearing.
--- NOTE | 2022-05-26 11:19 | NUR ---
RN-CO: Patient has a bright affect this morning. She took her medications and allowed the staff to care for her. Noted she was flipping the pages of a magazine in the acitivity room. She denied pain and discomforts. I offered fluids and snacks to her. We will continue to monitor and keep her safe. She was seen by Dr Beltrán.
[2022-05-26 16:00] VITALS: BP 111/71
--- NOTE | 2022-05-26 18:26 | NUR ---
RN-CO: MOM GIVEN FOR NO BM X 3 DAYS.
[2022-05-26 20:00] VITALS: BP 142/76
[2022-05-26 20:09] VITALS: BP 142/76
[2022-05-26] MEDS: QUETIAPINE FUMARATE 100 MG TABLET PO SCH (21:27)
[2022-05-27] MEDS: Z GUARD REMEDY 4 OZ OINT TP PRN (03:52)
[2022-05-27 06:37] LABS: BASOPHILS % (AUTO) 0.6 % (0.0-2.0); HEMATOCRIT 36 % (33-45); HEMOGLOBIN 11.7 g/dL (11.5-14.8); LYMPHOCYTES # (AUTO) 1.1 K/uL (0.8-4.8); LYMPHOCYTES % (AUTO) 19.3 % (20.0-44.0); MEAN CORPUSCULAR HGB CONC 32 g/dl (31.0-36.0); MEAN CORPUSCULAR VOLUME 85 fL (82-100); MONOCYTES # (AUTO) 0.6 K/uL (0.1-1.30); MONOCYTES % (AUTO) 10.9 % (2.0-12.0); NEUTROPHILS # (AUTO) 3.6 K/uL (1.8-8.9); NEUTROPHILS % (AUTO) 64.2 % (43.0-81.0); PLATELET COUNT (AUTO) 268 K/uL (150-450); RED BLOOD CELL COUNT(AUTO) 4.24 MIL/uL (4.0-5.2); WHITE BLOOD COUNT (AUTO) 5.5 K/uL (4.3-11.0)
[2022-05-27 07:04] LABS: VALPROIC ACID 41 ug/mL (50-100)
[2022-05-27 07:05] LABS: ALANINE AMINOTRANSFERASE 17 U/L (12-78); ALBUMIN 2.4 g/dL (3.4-5.0); ALKALINE PHOSPHATASE 105 U/L (46-116); ASPARTATE AMINOTRANSFERASE 16 U/L (15-37); BILIRUBIN,TOTAL 0.3 mg/dL (0.2-1.0); CALCIUM, SERUM 9.9 mg/dL (8.5-10.1); CARBON DIOXIDE 34 mmol/L (21-32); CHLORIDE 106 mmol/L (98-107); CREATININE 0.7 mg/dL (0.6-1.3); GLUCOSE 104 mg/dL (74-106); POTASSIUM 4.4 mmol/L (3.5-5.1); SODIUM SERUM 139 mmol/L (136-145); TOTAL PROTEIN, SERUM 6.7 g/dL (6.4-8.2); UREA NITROGEN, BLOOD 8 mg/dL (7-18)
[2022-05-27 08:00] VITALS: BP 114/72
--- NOTE | 2022-05-27 09:00 | NUR ---
RN NOTE- CONFUSED MED COMPLIANT RX CRUSHED IN PUDDING , PO INTAKE GOOD
[2022-05-27] MEDS: DIVALPROEX SODIUM 125 MG CAP.SPRINK PO SCH ×3 (09:10→16:28)
[2022-05-27] MEDS: VITAMIN B COMP W-C 1 TAB TABLET PO SCH (09:11)
[2022-05-27] MEDS: MULTIVIT W/MINERALS 1 TAB TABLET PO SCH (09:11)
[2022-05-27] MEDS: CHOLECALCIFEROL (VITAMIN D 3) 400 UNIT TABLET PO SCH (09:11)
[2022-05-27] MEDS: ASPIRIN 81 MG TAB.CHEW PO SCH (09:11)
[2022-05-27] MEDS: APIXABAN 5 MG TABLET PO SCH ×2 (09:11→16:29)
[2022-05-27] MEDS: DOCUSATE SODIUM 100 MG CAPSULE PO SCH (09:11)
[2022-05-27] MEDS: QUETIAPINE FUMARATE 25 MG TABLET PO SCH ×2 (09:11→16:29)
[2022-05-27] MEDS: Z GUARD REMEDY 4 OZ OINT TP SCH (09:15)
[2022-05-27] MEDS: CLOTRIMAZOLE 1% 15 GM TUBE TP SCH ×2 (09:15→16:31)
[2022-05-27] MEDS: HYDROCORTISONE 2.5% CREAM 28.4 GM TUBE TP SCH ×2 (09:15→16:31)
[2022-05-27] MEDS: MUPIROCIN OINT 2% 22 GM TUBE TP SCH ×2 (09:15→21:00)
--- NOTE | 2022-05-27 10:00 | NUR ---
RN NOTE- PT HASN'T VOIDED. BLADDER SCANNED. 900+ RETAINED. DR KINGSTON ORDERED I&O CATHETER PLUS C&S. COMPLIED. 1150 OUTPUT. TOLERATED WELL. MONITOR OUTPUT.
[2022-05-27 14:03] LABS: BILIRUBIN,URINE NEGATIVE (NEGATIVE); COLOR,URINE YELLOW (YELLOW); LEUKOCYTE ESTERASE ,URINE LARGE (NEGATIVE); NITRITE, URINE NEGATIVE (NEGATIVE); PROTEIN,URINE NEGATIVE (NEGATIVE); UGLUCOSE NEGATIVE (NEGATIVE)
[2022-05-27 14:24] LABS: BACTERIA,URINE 4+ /HPF (None Seen); RBC,URINE 0-2 /HPF (0-2)
--- NOTE | 2022-05-27 14:35 | NUR ---
RN NOTE- RECHECK PT BLADDER SCAN SHE HASN'T VOIDED. RETAINING 600+ CC UA. DR KINGSTON AWARE. INSERT FC AT THIS TIME. PT UA CX CAME BACK UTI+. AWARE
--- NOTE | 2022-05-27 15:38 | NUR ---
RN NOTE- RM CATHETER 16 FR INSERTED W STERILE TECHNIQUE. URINE OUTPUT CLOUDY / YELLOW. TOLERATED WELL. PLACRED IN AKASH CHAIR. MAY TRANSFER TO MED SURG FOR ABX THERAPY
--- NOTE | 2022-05-27 15:55 | NUR ---
RN NOTE- FC - 1000 CC CLOUDY YELLOW UA OUTPUT.
[2022-05-27 16:00] VITALS: BP 102/65
--- NOTE | 2022-05-27 17:04 | NUR ---
RN NOTE- DR KINGSTON STARTING PT ON ABX FOR UTI. PT ON LINE OF SIGHT FOR RM CATHETER. HOUSE SUP AWARE
--- NOTE | 2022-05-27 18:33 | NUR ---
RN NOTE- DR KINGSTON ORDERED KEFLEX 500 MG PO QID X 7 DAYS. PT SENSITIVE TO PENICILLINS. DISCUSSED W PHARMACY. THEY WILL REVIEW AND SPEAK W
[2022-05-27] MEDS: LEVOFLOXACIN (250MG) 250 MG TABLET PO SCH (18:37)
--- NOTE | 2022-05-27 18:38 | NUR ---
RN NOTE- ABX CHANGED TO LEVAQUIN 500 Q24H. FIRST DOSE ADMINISTERED
--- NOTE | 2022-05-27 19:45 | NUR ---
GPS RN NOTES RECEIVED PT IN BED ASLEEP, SITTER PRESENT ON BEDSIDE. EASY TO AROUSE. A/O X1. DEPRESSED, DISORGANIZED, FLAT AFFECT, EASILY AGITATED, GUARDED AND CONFUSED. HIGH FALL RISK. SAFETY MEASURES IN PLACE. WILL CONTINUE TO MONITOR Q15 MIN FOR SAFETY AND BEHAVIOR.
[2022-05-27] MEDS: QUETIAPINE FUMARATE 100 MG TABLET PO SCH (21:37)
--- NOTE | 2022-05-27 21:45 | NUR ---
RN NOTES PT REFUSED TO HAVE THE WOUND DRESSING REMOVED SO I CAN APPLY THE BACTROBAN. EXPLAINED RISKS AND BENEFITS, STILL REFUSED.
[2022-05-27] MEDS ORDERED: QUETIAPINE FUMARATE 100 MG TABLET PO SCH (22:00)
[2022-05-28] MEDS ORDERED: CEPHALEXIN MONOHYDRATE 500 MG CAPSULE PO SCH
[2022-05-28 08:00] VITALS: BP 109/59
[2022-05-28] MEDS: HYDROCORTISONE 2.5% CREAM 28.4 GM TUBE TP SCH ×2 (09:00→17:00)
[2022-05-28] MEDS: MUPIROCIN OINT 2% 22 GM TUBE TP SCH ×2 (09:00→21:17)
[2022-05-28] MEDS: Z GUARD REMEDY 4 OZ OINT TP SCH (09:00)
[2022-05-28] MEDS: CLOTRIMAZOLE 1% 15 GM TUBE TP SCH ×2 (09:00→17:42)
[2022-05-28] MEDS: MULTIVIT W/MINERALS 1 TAB TABLET PO SCH (09:08)
[2022-05-28] MEDS: VITAMIN B COMP W-C 1 TAB TABLET PO SCH (09:08)
[2022-05-28] MEDS: DIVALPROEX SODIUM 125 MG CAP.SPRINK PO SCH ×3 (09:08→17:43)
[2022-05-28] MEDS: APIXABAN 5 MG TABLET PO SCH ×2 (09:09→17:44)
[2022-05-28] MEDS: ASPIRIN 81 MG TAB.CHEW PO SCH (09:09)
[2022-05-28] MEDS: QUETIAPINE FUMARATE 25 MG TABLET PO SCH ×2 (09:10→17:43)
[2022-05-28] MEDS: DOCUSATE SODIUM 100 MG CAPSULE PO SCH (09:10)
[2022-05-28] MEDS: CHOLECALCIFEROL (VITAMIN D 3) 400 UNIT TABLET PO SCH (09:10)
--- NOTE | 2022-05-28 10:11 | NUR ---
BLADDER SCAN 225 ,DR. KINGSTON NOTIFIED WITH NEW ORDER BLADDER SCAN TID IF NON URINE .
--- NOTE | 2022-05-28 14:08 | NUR ---
RN-CO ;PATIENT IS CALM AND COOPERATIVE TO CARE, HOWEVER DUE TO CONFUSION SHE PULLED OUT HER CATHTER IN THE MORNING. SHE TAKES HER MEDICATIONS AND EATS WELL. WE NOTIFIED MD REGARDING THE PULLING OUT INCIDENT AND ORDERED TO DO BLADDER SCAN 3X A DAY.WE WILL MONIOTR.
[2022-05-28 16:00] VITALS: BP_SYST 100; BP_SYST 127; BP_DIAS 55; BP_DIAS 78
[2022-05-28] MEDS: LEVOFLOXACIN (250MG) 250 MG TABLET PO SCH (18:03)
[2022-05-28 20:00] VITALS: BP 113/62
[2022-05-28] MEDS: QUETIAPINE FUMARATE 100 MG TABLET PO SCH (21:51)
--- NOTE | 2022-05-29 02:32 | NUR ---
RN NOTE PATIENT NOTED WITH 919cc OF URINE DURING BLADDER SCAN. [employer]IV[employer] ANNMARIE NOTIFIED AND ORDERED RM CATHETER. ORDER CARRIED OUT AND RM INSERTED WITH 800cc OF IMMEDIATE URINE OUTPUT. WILL CONTINUE TO MONITOR PATIENT.
--- NOTE | 2022-05-29 07:28 | NUR ---
GPS RN OPENING NOTE RECEIVED PT AWAKE IN BED. A/O X0, REORIENTED PT NEEDED. PT REMAINS CALM WITH NOT EPISODES OF RESTLESSNESS OR ANXIOUSNESS. PT NOTED WITH EPISODE OF TRYING TO GET OUT OF BED. REDIRECTED PT NEEDED. PT HAS RM CATH. IN PLACE AND DRAINING WELL. SAFETY MEASURES IN PLACE AND MAINTAINED. WILL CONTINUE TO MONITOR PT.
[2022-05-29 08:00] VITALS: BP 99/59
[2022-05-29] MEDS: DIVALPROEX SODIUM 125 MG CAP.SPRINK PO SCH ×3 (09:52→16:25)
[2022-05-29] MEDS: DOCUSATE SODIUM 100 MG CAPSULE PO SCH (09:52)
[2022-05-29] MEDS: CHOLECALCIFEROL (VITAMIN D 3) 400 UNIT TABLET PO SCH (09:52)
[2022-05-29] MEDS: ASPIRIN 81 MG TAB.CHEW PO SCH (09:52)
[2022-05-29] MEDS: VITAMIN B COMP W-C 1 TAB TABLET PO SCH (09:52)
[2022-05-29] MEDS: MULTIVIT W/MINERALS 1 TAB TABLET PO SCH (09:52)
[2022-05-29] MEDS: QUETIAPINE FUMARATE 25 MG TABLET PO SCH ×2 (09:52→16:25)
[2022-05-29] MEDS: APIXABAN 5 MG TABLET PO SCH ×2 (09:54→16:27)
[2022-05-29] MEDS: MUPIROCIN OINT 2% 22 GM TUBE TP SCH ×2 (09:57→21:44)
[2022-05-29] MEDS: HYDROCORTISONE 2.5% CREAM 28.4 GM TUBE TP SCH ×2 (09:57→16:25)
[2022-05-29] MEDS: Z GUARD REMEDY 4 OZ OINT TP SCH (09:58)
[2022-05-29] MEDS: CLOTRIMAZOLE 1% 15 GM TUBE TP SCH ×2 (09:58→16:25)
--- NOTE | 2022-05-29 13:02 | NUR ---
GPS RN NOTE PT AWAKE IN CHAIR. A/O X0, REORIENTED PT NEEDED. PT NOTED WITH EPISODES OF RESTLESSNESS OR ANXIOUSNESS. PT ALSO NOTED WITH EPISODE OF TRYING TO GET OUT OF CHAIR. REDIRECTED PT NEEDED. PT HAS RM CATH. IN PLACE AND DRAINING WELL. SAFETY MEASURES MAINTAINED. WILL CONTINUE TO MONITOR PT.
--- NOTE | 2022-05-29 13:46 | NUR ---
SNF Referrals: SW sent clinicals to [facility][Note 3] and [facility] for placement option.
--- NOTE | 2022-05-29 13:51 | NUR ---
CAR Family Contact: CAR contacted pt's son Germain ([phone]) and stated that [facility] is not accepting pt back due to forde inserted. CRA left a detailed voicemail that this verse writer would have to fax clinicals to different facilities. SW waiting for son's call.
--- NOTE | 2022-05-29 13:57 | NUR ---
CAR Family Contact: CAR contacted pt's son Germain ([phone]) and stated to disregard the voicemail and that [facility] will accept pt 05/30. He is aware.
--- NOTE | 2022-05-29 14:02 | NUR ---
SNF Contact: SW spoke with Kit alonso from [facility] ([phone]) who stated they can accept pt tomorrow 05/30 but would have to remove the forde and they will insert the forde when pt arrives, noted.
--- NOTE | 2022-05-29 14:08 | NUR ---
RN-NOTES RECEIVED T.O ORDER FROM DR. NORTON OF UROLOGY CONSULT. NOTED AND CARRIED.
--- NOTE | 2022-05-29 14:15 | NUR ---
RN-NOTES DR. MCCLELLAND ) (UROLOGY) MADE AWARE.
--- NOTE | 2022-05-29 14:18 | NUR ---
CAR Note: Dr. Beltrán requested urology consult and requested for this underwriter to notify charge nurse. SW notified charge nurse Gia.
[2022-05-29] MEDS: LORAZEPAM 0.5 MG TABLET PO PRN (14:48)
--- NOTE | 2022-05-29 14:49 | NUR ---
GPS RN NOTE PT NOTED WITH CONTINUOUS EPISODES OF AGITATION AND RESTLESSNESS. ATIVAN 0.5MG PO GIVEN ORDERED PRN Q6H FOR AGITATION. WILL MONITOR AND REASSESS PT.
[2022-05-29 16:00] VITALS: BP 93/59
[2022-05-29] MEDS: LEVOFLOXACIN (250MG) 250 MG TABLET PO SCH (18:07)
[2022-05-29 20:00] VITALS: BP 101/61
[2022-05-29] MEDS: QUETIAPINE FUMARATE 100 MG TABLET PO SCH (22:37)
--- NOTE | 2022-05-30 07:00 | NUR ---
GPS RN OPENING NOTES PATIENT LAYING IN BED, A/O X 2, TOLERATING WELL ON ROOM AIR WITH NO S/S RESPIRATORY DISTRESS. NO COMPLAINTS OF PAIN OR DISCOMFORT AT THIS TIME. 16 FR RM CATHETER IN PLACE DRAINING CLEAR YELLOW URINE TO GRAVITY. SAFETY MEASURES IN PLACE: BED IN LOWEST LOCKED POSITION, SIDE RAILS UP X 2, CALL LIGHT WITHIN REACH. WILL CONTINUE TO MONITOR.
--- NOTE | 2022-05-30 07:11 | NUR ---
rim fire priming tool setter notes: Patient pulled out forde catheter. Inserted [id number] forde catheter using aseptic technique. Noted rashard clear urine. Patient tolerated well.
--- NOTE | 2022-05-30 07:51 | NUR ---
SW Discharge Note: Patient will be discharged to [facility] facility [facility] [address] [place] [address]; ([phone]). Please arrange transportation at 2PM. [employer] Manager spoke with Kit alonso at [facility] ([phone]) who stated patient will be accepted at facility today. Patients is aware and agreeable. Patient is alert and oriented x2 and is not able to plan for self-care at this time but is willing to accept care provided for her at the facility. Patient denies suicidal or homicidal ideation. Patients son Germain ([phone]) is aware and agreeable of dc. Patient will follow-up with (Psychiatrist) Dr. Beltrán [address], [place] [address]; ([phone]) and Radiation Oncology Nurse Dr. Gary [address], [place] [address]; ([phone]). Patient presents with euthymic mood and congruent affect.
[2022-05-30 08:00] VITALS: BP 101/59
[2022-05-30] MEDS: CHOLECALCIFEROL (VITAMIN D 3) 400 UNIT TABLET PO SCH (09:05)
[2022-05-30] MEDS: VITAMIN B COMP W-C 1 TAB TABLET PO SCH (09:05)
[2022-05-30] MEDS: DOCUSATE SODIUM 100 MG CAPSULE PO SCH (09:05)
[2022-05-30] MEDS: MULTIVIT W/MINERALS 1 TAB TABLET PO SCH (09:05)
[2022-05-30] MEDS: DIVALPROEX SODIUM 125 MG CAP.SPRINK PO SCH ×2 (09:05→12:26)
[2022-05-30] MEDS: ASPIRIN 81 MG TAB.CHEW PO SCH (09:05)
[2022-05-30] MEDS: QUETIAPINE FUMARATE 25 MG TABLET PO SCH (09:06)
[2022-05-30] MEDS: APIXABAN 5 MG TABLET PO SCH (09:07)
[2022-05-30] MEDS: MUPIROCIN OINT 2% 22 GM TUBE TP SCH (09:09)
[2022-05-30] MEDS: HYDROCORTISONE 2.5% CREAM 28.4 GM TUBE TP SCH (09:09)
[2022-05-30] MEDS: CLOTRIMAZOLE 1% 15 GM TUBE TP SCH (09:09)
[2022-05-30] MEDS: Z GUARD REMEDY 4 OZ OINT TP SCH (09:23)
[2022-05-30 16:00] VITALS: BP 102/62
--- NOTE | 2022-05-30 16:12 | NUR ---
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 PATIENT CONFUSED AND UNABLE TO VERBALIZE UNDERSTANDING OF MD DISCHARGE INSTRUCTIONS OR SIGN MD DISCHARGE INSTRUCTIONS SHEET. PATIENT ALSO UNABLE TO VERBALIZE POSSESSION OF BELONGINGS OR SIGN BELONGINGS SHEET. FORMS CO-SIGNED WITH RN. RM CATHETER REMOVED. ID BAND REMOVED. PATIENT TRANSFERRED OFF OF UNIT ACCOMPANIED BY 2 SUPERVISOR WOUND EN ROUTE TO [facility]. REPORT WAS CALLED TO ANT [facility] AT RECEIVING FACILITY. PATIENT STABLE AT TIME OF DISCHARGE.
== END 2022-05-30 16:15 | DRG 885 ==
LOC: ER 22:43 → GPS 05-20 01:13
PROVIDERS: ADMIT Psychiatry & Neurology Psychiatry; ATTEND Internal Medicine
DX: F29 Unspecified psychosis not due to a substance or known physiological condition (principal); G93.41 Metabolic encephalopathy; F02.81 Dementia in other diseases classified elsewhere, unspecified severity, with behavioral disturbance; N39.0 Urinary tract infection, site not specified; F41.9 Anxiety disorder, unspecified; Z20.822 Contact with and (suspected) exposure to COVID-19; G30.9 Alzheimer's disease, unspecified; I10 Essential (primary) hypertension; Z86.16 Personal history of COVID-19; Z91.19 Patient's noncompliance with other medical treatment and regimen; Z87.81 Personal history of (healed) traumatic fracture; Z88.0 Allergy status to penicillin; Z79.82 Long term (current) use of aspirin; Z79.01 Long term (current) use of anticoagulants; Z79.899 Other long term (current) drug therapy; Z73.6 Limitation of activities due to disability; F25.9 Schizoaffective disorder, unspecified; F39 Unspecified mood [affective] disorder; M81.0 Age-related osteoporosis without current pathological fracture; E88.09 Other disorders of plasma-protein metabolism, not elsewhere classified; E11.9 Type 2 diabetes mellitus without complications; M19.90 Unspecified osteoarthritis, unspecified site; Z68.30 Body mass index [BMI] 30.0-30.9, adult; Z96.641 Presence of right artificial hip joint
CPT/HCPCS: 36415; 80048-TC; 80053-TC; 80061-TC; 80076-TC; 80164-TC; 81001; 82565-TC; 82962-TC; 85025-TC; 85610-TC; 85730-TC; 87086-TC; 97116-TC; 97530-TC; C9803; G0480; J3490